=== PATIENT | female | born 1955 | race Caucasian/White ===

== ENCOUNTER → 2020-08-11 | Emergency (ER) | payer SELFPAY | LOC: DL.ED 13:50 | DX: Z53.21 Procedure and treatment not carried out due to patient leaving prior to being seen by health care provider (principal) ==

== ENCOUNTER 2020-08-23 16:35 | Inpatient (IN) | payer MEDICAID ==
[2020-08-23] MEDS ORDERED: Ondansetron 4 MG/2 ML SDV IVPUSH PRN (17:37)
[2020-08-23] MEDS ORDERED: Acetaminophen/oxyCODONE 325-5 MG Tab PO PRN (17:37)
[2020-08-23] MEDS ORDERED: Simvastatin 40 MG Tab PO SCH (17:45)
--- NOTE | 2020-08-23 18:05 | PCM.HP ---
H&P History of Present Illness - General Date of Service: 08/23/20 Admit Problem/Dx: Admission Diagnosis/Problem Admission Diagnosis/Problem Diverticulitis Source of Information: Patient, Old Records, Provider - History of Present Illness Initial Comments - Free Text/Narative: Patient is a 65 y.o female with medical history significant for HLP, PEÑA, Low back pain, s/p cholecystectomy, s/p appendectomy, and depression who was seen in clinic yesterday for 2 weeks of abdominal pain and was sent for imaging, which showed acute diverticulitis. Patient reports that she has been dealing with lower abdominal pain that started on the right and now involves the entire lower abdomen. States pain started 2 weeks ago, without trauma, and slowly worsened. Was about 10/10 yesterday and 9/10 this morning. Since improved to 2/10 at rest and 5/10 with movement. Reports nausea without emesis. States pain improved after she had BM today after CT. Reports chills but denies fevers, cp, sob, n/v/d/c, dysuria, or hematuria. - Related Data Allergies/Adverse Reactions: Allergies Allergy/AdvReac Type Severity Reaction Status Date / Time aspirin Allergy Stomach Verified 07/25/18 12:04 Upset codeine Allergy Stomach Verified 07/25/18 12:04 Upset Sulfa (Sulfonamide Allergy Stomach Verified 07/25/18 12:04 Antibiotics) Upset Home Medications: Home Meds Simvastatin [Zocor] 20 mg PO ASDIRECTED 07/25/18 [History] Past Medical History HEENT History: Reports: Impaired Vision Cardiovascular History: Reports: High Cholesterol Respiratory History: Reports: None Gastrointestinal History: Reports: Diverticulosis Genitourinary History: Reports: Urinary Incontinence LARD [employer]ER History: Reports: None Musculoskeletal History: Reports: None Neurological History: Reports: None Psychiatric History: Reports: Anxiety, Depression Endocrine/Metabolic History: Reports: Obesity/BMI 30+ Hematologic History: Reports: None Immunologic History: Reports: None Oncologic (Cancer) History: Reports: None Dermatologic History: Reports: None - Infectious Disease History Infectious Disease History: Reports: None - Past Surgical History GI Surgical History: Reports: Cholecystectomy, Colonoscopy Female Surgical History: Reports: Breast Reduction, D&C, Salpingo- Oophorectomy, Tubal Ligation, TURBT Neurological Surgical History: Reports: Other (See Below) (cyst removed from spine) Social & Family History - Family History Family Medical History: No Pertinent Family History Cardiac: Reports: CAD (Father with CABG), Heart Failure (mother) - Caffeine Use Caffeine Use: Reports: None - Living Situation & Occupation Living situation: Reports: H&P Review of Systems - Review of Systems: Review Of Systems: Comprehensive ROS is negative, except as noted in HPI. Exam - Exam Exam: See Below - Exam General: Alert, Oriented, Cooperative, Mild Distress HEENT: Conjunctiva Clear, EOMI, Hearing Intact, Mucosa Moist & [place] Neck: Supple, Trachea Midline Lungs: Clear to Auscultation, Normal Respiratory Effort Cardiovascular: Regular Rate, Regular Rhythm, Normal S1, Normal S2 GI/Abdominal Exam: Normal Bowel Sounds, Soft, Tender (without guarding or rebound. ) Extremities: Normal Inspection, Non-Tender, No Pedal Edema Peripheral Pulses: 2+: Radial (L), Dorsalis Pedis (L), Dorsalis Pedis (R) Skin: Warm, Dry, Intact Neuro Extensive - Mental Status: Alert, Oriented x3, Normal Mood/Affect, Normal Cognition, Memory Intact Psychiatric: Alert, Normal Affect, Normal Mood - Patient Data Lab Results Last 24 hrs: Laboratory Results - last 24 hr 08/23/20 Range/Units 17:06 SARS CoV-2 RNA Rapid DYLON Negative (NEGATIVE) - Problem List (1) Acute diverticulitis SNOMED Code(s): 341554847 ICD Code: K57.92 - DVTRCLI OF INTEST, PART UNSP, W/O PERF OR ABSCESS W/O BLEED Status: Acute Current Visit: Yes (2) Hyperlipidemia SNOMED Code(s): 25288897 ICD Code: E78.5 - HYPERLIPIDEMIA, UNSPECIFIED Status: Acute Current Visit: Yes (3) Obesity SNOMED Code(s): 481201018, 039162836 ICD Code: E66.9 - OBESITY, UNSPECIFIED Status: Acute Current Visit: Yes (4) PEÑA (obstructive sleep apnea) SNOMED Code(s): 00564193 ICD Code: G47.33 - OBSTRUCTIVE SLEEP APNEA (ADULT) (PEDIATRIC) Status: Acute Current Visit: Yes Problem List Initiated/Reviewed/Updated: Yes Orders Last 24hrs: Active Orders 24 hr Category Date Time Status Patient Status [ADT] Routine ADT 08/23/20 17:38 Active Intake and Output [RC] QSHIFT Care 08/23/20 17:39 Active Oxygen Therapy [RC] PRN Care 08/23/20 17:38 Active Up ad Guerita [RC] ASDIRECTED Care 08/23/20 17:37 Active VTE/DVT Education [RC] PER UNIT ROUTINE Care 08/23/20 17:38 Active Vital Signs [RC] Q4H Care 08/23/20 17:38 Active Clear Liquid Diet [DIET] Diet 08/23/20 Dinner Active CBC WITH AUTO DIFF [HEME] Routine Lab 08/23/20 17:37 Ordered COMPREHENSIVE METABOLIC PN,CMP [CHEM] Routine Lab 08/23/20 17:37 Ordered MAGNESIUM [CHEM] Routine Lab 08/23/20 17:37 Ordered PHOSPHORUS [CHEM] Routine Lab 08/23/20 17:37 Ordered Acetaminophen [TylenoL] Med 08/23/20 17:37 Active 650 mg PO Q4H PRN Acetaminophen/oxyCODONE [Percocet 325-5 MG] Med 08/23/20 17:37 Active 1 tab PO Q4H PRN Ciprofloxacin in D5W [Cipro in D5W 400 MG/200 ML] 400 Med 08/23/20 21:00 Pend ing mg Premix Bag 1 bag IV Q12HR Heparin Sodium Med 08/23/20 22:00 Active 5,000 units SUBCUT Q8HR Ondansetron [Zofran ODT] Med 08/23/20 17:37 Active 4 mg PO Q6H PRN Ondansetron [Zofran] Med 08/23/20 17:37 Active 4 mg IVPUSH Q6H PRN Simvastatin [Zocor] Med 08/23/20 17:45 Pending 20 mg PO ASDIRECTED Sodium Chloride 0.9% [Normal Saline] 1,000 ml Med 08/23/20 17:45 Active IV ASDIRECTED metroNIDAZOLE/Normal Saline [Flagyl 500 MG in NS 100 ML Med 08/23/20 17:45 Active ] 500 mg Premix Bag 100 bag IV Q8H Resuscitation Status Routine Resus Stat 08/23/20 17:37 Ordered Medication Orders Acetaminophen (Tylenol) 650 mg PO Q4H PRN PRN Reason: Pain Heparin Sodium (Porcine) (Heparin Sodium) 5,000 units SUBCUT Q8HR [facility] Sodium Chloride (Normal Saline) 1,000 mls @ 125 mls/hr IV ASDIRECTED [facility] Ciprofloxacin/Dextrose 400 mg/ (Premix) 200 mls @ 200 mls/hr IV Q12HR [facility] Metronidazole 500 mg/ Premix 100 mls @ 100 mls/hr IV Q8H [facility] Ondansetron HCl (Zofran Odt) 4 mg PO Q6H PRN PRN Reason: nausea, able to take PO Ondansetron HCl (Zofran) 4 mg IVPUSH Q6H PRN PRN Reason: Nausea/Vomiting Oxycodone/Acetaminophen (Percocet 325-5 Mg) 1 tab PO Q4H PRN PRN Reason: Pain (moderate 4-6) Simvastatin (Zocor) 20 mg PO ASDIRECTED [facility] Assessment/Plan Comment:: #Acute diverticulitis: Reports abdominal pain and confirmed on CT -Cipro and flagyl -IVF -Clear liquid diet #HLP: -Zocor #PEÑA: -Offer her CPAP at bedtime. #Tobacco use disorder: Trying to quit. - Counseling provided. #Alcohol abuse: -Last drink over a week ago. -Counseling provided. DVT PPx: Heparin GI PPx: CLD. Code status: Full code per patient preference.
[2020-08-23] MEDS: Sodium Chloride 0.9% 1,000 ML IV SCH (18:44)
[2020-08-23 18:47] LABS: ANION GAP 12.4 mEq/L (7-13); CHLORIDE,CL 100 mmol/L (98-107); SODIUM,NA 135 mmol/L (136-145)
[2020-08-23] MEDS: metroNIDAZOLE/Normal Saline 500 MG in Premix Bag 100 BAG IV SCH (18:47)
[2020-08-23] MEDS: Acetaminophen 325 MG Tab PO PRN (20:12)
[2020-08-23] MEDS: Ondansetron 4 MG Tab.DIS PO PRN (20:12)
[2020-08-23] MEDS: Ciprofloxacin in D5W 400 MG in Premix Bag 1 BAG IV SCH ×2 (20:13)
[2020-08-23] MEDS ORDERED: diphenhydrAMINE 25 MG Tab PO ONE (21:53)
[2020-08-24] MEDS: Heparin Sodium 5,000 Units/ML Vial SUBCUT SCH ×4 (00:18→21:57)
[2020-08-24] MEDS: metroNIDAZOLE/Normal Saline 500 MG in Premix Bag 100 BAG IV SCH ×2 (03:16→10:20)
[2020-08-24] MEDS: Acetaminophen 325 MG Tab PO PRN ×2 (03:17→12:12)
[2020-08-24] MEDS: Sodium Chloride 0.9% 1,000 ML IV SCH (03:18)
[2020-08-24] MEDS: Ciprofloxacin in D5W 400 MG in Premix Bag 1 BAG IV SCH ×2 (10:20)
[2020-08-24] MEDS ORDERED: Sodium Chloride 0.9% 10 ML Syringe FLUSH PRN (11:03)
[2020-08-24] MEDS: Ondansetron 4 MG Tab.DIS PO PRN (11:24)
--- NOTE | 2020-08-24 11:42 | PCM.PN ---
- General Info Date of Service: 08/24/20 Admission Dx/Problem (Free Text): Admission Diagnosis/Problem Admission Diagnosis/Problem Diverticulitis Subjective Update: No acute events overnight. Reports a rash on the chest and face slightly improved. Had rash on the neck but that is also improved. Tolerated clear liquid diet. States that her abdominal pain worsens with movement but otherwise remained stable. Denies fevers, chills, nausea, vomiting, diarrhea, constipation, dysuria, hematuria, edema, or any other symptoms. Functional Status: Reports: Pain Controlled - Patient Data Vitals - Most Recent: Last Vital Signs Temp 98.3 F 08/24/20 07:59 Pulse 74 08/24/20 07:59 Resp 20 08/24/20 07:59 BP 114/52 L 08/24/20 07:59 Pulse Ox 98 08/24/20 07:59 Weight - Most Recent: 230 lb I&O - Last 24 Hours: Intake & Output 08/23/20 08/24/20 08/24/20 22:59 06:59 14:59 Intake Total 300 1289 834 Output Total 1000 Balance 300 289 834 Lab Results Last 24 Hours: Laboratory Results - last 24 hr 08/23/20 08/23/20 08/23/20 Range/Units 17:06 18:20 18:20 WBC 9.7 (5.0-10.0) 10^3/uL RBC 3.86 L (4.2-5.4) 10^6/uL Hgb 12.8 (12.0-16.0) g/dL Hct 37.7 (37.0-47.0) % MCV 97.7 D (80-100) fL MCH 33.2 (27.0-34.0) pg MCHC 34.0 (33.0-35.0) g/dL Plt Count 244 (150-450) 10^3/uL Lymph % (Auto) 3.6 L (20.5-50.1) % [place] % (Auto) 6.8 (2-8) % Eos % (Auto) 1.7 (1.0-3.0) % Neutrophils % (Manual) 82 H (42-75) % Band Neutrophils % 4 % Lymphocytes % (Manual) 7 L (20-50) % Monocytes % (Manual) 6 (2-8) % Eosinophils % (Manual) 1 (1-3) % Sodium 135 L (136-145) mmol/L Potassium 3.4 L (3.5-5.1) mmol/L Chloride 100 (98-107) mmol/L Carbon Dioxide 26 (21-32) mmol/L Anion Gap 12.4 (7-13) mEq/L BUN 8 (7-18) mg/dL Creatinine 0.99 (0.55-1.02) mg/dL Est Cr Clr Drug Dosing TNP Estimated GFR (MDRD) 56 BUN/Creatinine Ratio 8.1 (No establ ref range) Glucose 122 H (74-99) mg/dL Calcium 8.4 L (8.5-10.1) mg/dL Phosphorus 2.8 (2.6-4.7) mg/dL Magnesium 1.9 (1.8-2.4) mg/dL Total Bilirubin 0.5 (0.2-1.0) mg/dL AST 14 L (15-37) U/L ALT 21 (14-59) U/L Alkaline Phosphatase 56 (46-116) U/L Total Protein 6.8 (6.4-8.2) g/dL Albumin 3.4 (3.4-5.0) g/dL Globulin 3.4 Albumin/Globulin Ratio 1.0 SARS CoV-2 RNA Rapid DYLON Negative (NEGATIVE) Med Orders - Current: Current Medications Acetaminophen (Tylenol) 650 mg PO Q4H PRN PRN Reason: Pain Last Admin: 08/24/20 03:17 Dose: 650 mg Documented by: Amoxicillin/Clavulanate Potassium (Augmentin 875 Mg/125 Mg) 1 tab PO Q12HR [facility] Heparin Sodium (Porcine) (Heparin Sodium) 5,000 units SUBCUT Q8HR [facility] Last Admin: 08/24/20 06:00 Dose: Not Given Documented by: Metronidazole (Metronidazole) 250 mg PO Q8H [facility] Ondansetron HCl (Zofran Odt) 4 mg PO Q6H PRN PRN Reason: nausea, able to take PO Last Admin: 08/24/20 11:24 Dose: 4 mg Documented by: Ondansetron HCl (Zofran) 4 mg IVPUSH Q6H PRN PRN Reason: Nausea/Vomiting Oxycodone/Acetaminophen (Percocet 325-5 Mg) 1 tab PO Q4H PRN PRN Reason: Pain (moderate 4-6) Simvastatin (Zocor) 20 mg PO ASDIRECTED [facility] Sodium Chloride (Saline Flush) 10 ml FLUSH ASDIRECTED PRN PRN Reason: Keep Vein Open Discontinued Medications Diphenhydramine HCl (Benadryl) 25 mg PO ONETIME ONE Stop: 08/23/20 21:54 Last Admin: 08/23/20 22:23 Dose: 25 mg Documented by: Sodium Chloride (Normal Saline) 1,000 mls @ 125 mls/hr IV ASDIRECTED [facility] Last Admin: 08/24/20 03:18 Dose: 125 mls/hr Documented by: Ciprofloxacin/Dextrose 400 mg/ (Premix) 200 mls @ 200 mls/hr IV Q12HR [facility] Last Admin: 08/24/20 10:20 Dose: Not Given Documented by: Metronidazole 500 mg/ Premix 100 mls @ 100 mls/hr IV Q8H [facility] Last Admin: 08/24/20 10:20 Dose: Not Given Documented by: - Exam General: Alert, Oriented, Cooperative, No Acute Distress HEENT: Pupils Equal, Pupils Reactive, Mucous Membr. Moist/[place] Neck: Supple, Trachea Midline Lungs: Clear to Auscultation, Normal Respiratory Effort Cardiovascular: Regular Rate, Regular Rhythm, No Murmurs GI/Abdominal Exam: Normal Bowel Sounds, Soft, Tender (Mild tenderness of bilateral lower abdomen, worse on the left. ) Extremities: Normal Inspection, Non-Tender, No Pedal Edema, Normal Capillary Refill Skin: Warm, Dry, Intact Neurological: No New Focal Deficit Psy/Mental Status: Alert, Normal Affect, Normal Mood Sepsis Event Note - Evaluation Sepsis Screening Result: No Definite Risk - Focused Exam Vital Signs: Vital Signs Temp Pulse Resp BP BP Pulse Ox 08/24/20 07:59 98.3 F 74 20 114/52 L 98 08/24/20 03:24 102.6 F H 86 14 145/51 H 94 L 08/24/20 00:00 98.7 F 72 18 120/43 L 95 - Problem List & Annotations (1) Acute diverticulitis SNOMED Code(s): 063810015 Code(s): K57.92 - DVTRCLI OF INTEST, PART UNSP, W/O PERF OR ABSCESS W/O BLEED Status: Acute Current Visit: Yes (2) Hyperlipidemia SNOMED Code(s): 60902134 Code(s): E78.5 - HYPERLIPIDEMIA, UNSPECIFIED Status: Acute Current Visit: Yes (3) Obesity SNOMED Code(s): 893924472, 493292192 Code(s): E66.9 - OBESITY, UNSPECIFIED Status: Acute Current Visit: Yes (4) PEÑA (obstructive sleep apnea) SNOMED Code(s): 24168560 Code(s): G47.33 - OBSTRUCTIVE SLEEP APNEA (ADULT) (PEDIATRIC) Status: Acute Current Visit: Yes - Problem List Review Problem List Initiated/Reviewed/Updated: Yes - My Orders Last 24 Hours: My Active Orders 08/23/20 17:37 Up ad Guerita [RC] ASDIRECTED Acetaminophen [TylenoL] 650 mg PO Q4H PRN Acetaminophen/oxyCODONE [Percocet 325-5 MG] 1 tab PO Q4H PRN Ondansetron [Zofran ODT] 4 mg PO Q6H PRN Ondansetron [Zofran] 4 mg IVPUSH Q6H PRN Resuscitation Status Routine 08/23/20 17:38 Patient Status [ADT] Routine Oxygen Therapy [RC] PRN VTE/DVT Education [RC] PER UNIT ROUTINE Vital Signs [RC] Q4H 08/23/20 17:39 Intake and Output [RC] QSHIFT 08/23/20 17:45 Simvastatin [Zocor] 20 mg PO ASDIRECTED 08/23/20 22:00 Heparin Sodium 5,000 units SUBCUT Q8HR 08/24/20 11:00 metroNIDAZOLE 250 mg PO Q8H 08/24/20 11:03 Sodium Chloride 0.9% [Saline Flush] 10 ml FLUSH ASDIRECTED PRN Convert IV to Saline Lock [OM.PC] Routine 08/24/20 Lunch Full Liquid Diet [DIET] 08/24/20 21:00 Amoxicillin/Clavulanate K [Augmentin 875 MG/125 MG] 1 tab PO Q12HR 08/25/20 05:11 BASIC METABOLIC PANEL,BMP [CHEM] AM CBC W/O DIFF,HEMOGRAM [HEME] AM MAGNESIUM [CHEM] AM PHOSPHORUS [CHEM] AM - Plan Plan:: #Acute diverticulitis: Reports abdominal pain and confirmed on CT -Discontinue cipro -Start augmenting and oral flagyl -D/c IVF -Full liquid diet #HLP: -Zocor #Drug rash: -Discontinue Cipro #PEÑA: -Offer her CPAP at bedtime. #Tobacco use disorder: Trying to quit. - Counseling provided. #Alcohol abuse: -Last drink over a week ago. -Counseling provided. DVT PPx: Heparin GI PPx: CLD. Code status: Full code per patient preference.
[2020-08-24] MEDS: metroNIDAZOLE 250 MG Tab PO SCH ×2 (12:12→19:15)
[2020-08-24] MEDS: Amoxicillin/Clavulanate K 875-125 MG Tab PO SCH (21:57)
[2020-08-25] MEDS: metroNIDAZOLE 250 MG Tab PO SCH (03:39)
[2020-08-25] MEDS: Heparin Sodium 5,000 Units/ML Vial SUBCUT SCH ×2 (05:44→13:43)
[2020-08-25 06:59] LABS: ANION GAP 11.9 mEq/L (7-13)
[2020-08-25] MEDS: Amoxicillin/Clavulanate K 875-125 MG Tab PO SCH (08:50)
[2020-08-25] MEDS ORDERED: Phosphorus #1 250 MG Tab PO ONE (09:14)
[2020-08-25] MEDS: Potassium Chloride 10 MEQ Tab.ER PO SCH ×2 (09:36→13:44)
[2020-08-25] MEDS ORDERED: metroNIDAZOLE 250 MG Tab PO SCH (14:00)
--- NOTE | 2020-08-25 15:56 | PCM.DCSUM1 ---
Discharge Summary - Hospital Course Free Text/Narrative:: Patient is a 65 y.o female with medical history significant for HLP, PEÑA, Low back pain, s/p cholecystectomy, s/p appendectomy, and depression who was seen in clinic yesterday for 2 weeks of abdominal pain and was sent for imaging, which showed acute diverticulitis. She was sent home on oral antibiotics but pain persisted was was referred for admission for IV antibiotics. Patient developed rash with ciprofloxacin as outpatient. Cipro was discontinued and she was started on Augmentin and flagyl. Patient's abdominal pain improved. She was started on clear liquid diet and diet was advanced slowly. She improved clinically and tolerated general consistency diet. Potassium was down to 2.9 this morning. Improved to 3.7 with oral replacement. She is being discharged home to continue antibiotics with augmentin and flagyl. She is to follow up with PCP. HPI Initial Comments: Patient is a 65 y.o female with medical history significant for HLP, PEÑA, Low back pain, s/p cholecystectomy, s/p appendectomy, and depression who was seen in clinic yesterday for 2 weeks of abdominal pain and was sent for imaging, which showed acute diverticulitis. Patient reports that she has been dealing with lower abdominal pain that started on the right and now involves the entire lower abdomen. States pain started 2 weeks ago, without trauma, and slowly worsened. Was about 10/10 yesterday and 9/10 this morning. Since improved to 2/10 at rest and 5/10 with movement. Reports nausea without emesis. States pain improved after she had BM today after CT. Reports chills but denies fevers, cp, sob, n/v/d/c, dysuria, or hematuria. Diagnosis: Stroke: No - Discharge Data Discharge Date: 08/25/20 Discharge Disposition: Home, Self-Care 01 Condition: Good - Referral to Home Health Primary Care Physician: Crystal Yoder MD - Discharge Diagnosis/Problem(s) (1) Acute diverticulitis SNOMED Code(s): 453222542 ICD Code: K57.92 - DVTRCLI OF INTEST, PART UNSP, W/O PERF OR ABSCESS W/O BLEED Status: Acute Current Visit: Yes (2) Hyperlipidemia SNOMED Code(s): 13151212 ICD Code: E78.5 - HYPERLIPIDEMIA, UNSPECIFIED Status: Acute Current Visit: Yes (3) Obesity SNOMED Code(s): 442155610, 480393896 ICD Code: E66.9 - OBESITY, UNSPECIFIED Status: Acute Current Visit: Yes (4) PEÑA (obstructive sleep apnea) SNOMED Code(s): 51895458 ICD Code: G47.33 - OBSTRUCTIVE SLEEP APNEA (ADULT) (PEDIATRIC) Status: Acute Current Visit: Yes - Discharge Plan *PRESCRIPTION DRUG MONITORING PROGRAM REVIEWED*: No *COPY OF PRESCRIPTION DRUG MONITORING REPORT IN PATIENT MERLE: No Prescriptions/Med Rec: Amoxicillin/Clavulanate K [Augmentin 875-125 MG] 1 tab PO Q12HR #9 tablet metroNIDAZOLE 500 mg PO Q8H #28 tablet Home Medications: Home Meds Simvastatin [Zocor] 20 mg PO BEDTIME 07/25/18 [History] Amoxicillin/Clavulanate K [Augmentin 875-125 MG] 1 tab PO Q12HR #9 tablet 08/25/20 [Rx] metroNIDAZOLE 500 mg PO Q8H #28 tablet 08/25/20 [Rx] Patient Handouts: Diverticulitis, [id number], Low-Fiber Eating Plan - Discharge Summary/Plan Comment DC Time >30 min.: Yes - General Info Date of Service: 08/25/20 Admission Dx/Problem (Free Text: Admission Diagnosis/Problem Admission Diagnosis/Problem Diverticulitis Subjective Update: Potassium down to 2.9 this morning. Reports a rash on the chest and face is improved. Tolerated full liquid diet. Abdominal pain is improved. Only has abdominal pain with bowel movements. Denies fevers, chills, nausea, vomiting, diarrhea, constipation, dysuria, hematuria, edema, or any other symptoms. - Patient Data Vitals - Most Recent: Last Vital Signs Temp 97.6 F 08/25/20 12:23 Pulse 76 08/25/20 12:23 Resp 20 08/25/20 12:23 BP 118/51 L 08/25/20 12:23 Pulse Ox 98 08/25/20 12:23 Weight - Most Recent: 230 lb I&O - Last 24 hours: Intake & Output 08/25/20 08/25/20 08/25/20 06:59 14:59 22:59 Intake Total 150 120 Output Total 500 Balance -350 120 Lab Results - Last 24 hrs: Laboratory Results - last 24 hr 08/25/20 08/25/20 08/25/20 Range/Units 06:05 06:05 14:51 WBC 8.8 (5.0-10.0) 10^3/uL RBC 3.29 L (4.2-5.4) 10^6/uL Hgb 11.0 L D (12.0-16.0) g/dL Hct 32.2 L (37.0-47.0) % MCV 97.9 (80-100) fL MCH 33.4 (27.0-34.0) pg MCHC 34.2 (33.0-35.0) g/dL Plt Count 182 (150-450) 10^3/uL Sodium 136 (136-145) mmol/L Potassium 2.9 L 3.7 (3.5-5.1) mmol/L Chloride 101 (98-107) mmol/L Carbon Dioxide 26 (21-32) mmol/L Anion Gap 11.9 (7-13) mEq/L BUN 6 L (7-18) mg/dL Creatinine 0.97 (0.55-1.02) mg/dL Est Cr Clr Drug Dosing 52.72 mL/min Estimated GFR (MDRD) 58 Glucose 128 H (74-99) mg/dL Calcium 7.8 L (8.5-10.1) mg/dL Phosphorus 2.3 L (2.6-4.7) mg/dL Magnesium 1.8 (1.8-2.4) mg/dL Med Orders - Current: Current Medications Acetaminophen (Tylenol) 650 mg PO Q4H PRN PRN Reason: Pain Last Admin: 08/24/20 12:12 Dose: 650 mg Documented by: Amoxicillin/Clavulanate Potassium (Augmentin 875 Mg/125 Mg) 1 tab PO Q12HR [facility] Last Admin: 08/25/20 08:50 Dose: 1 tab Documented by: Heparin Sodium (Porcine) (Heparin Sodium) 5,000 units SUBCUT Q8HR [facility] Last Admin: 08/25/20 13:43 Dose: 5,000 units Documented by: Metronidazole (Metronidazole) 250 mg PO Q8H [facility] Last Admin: 08/25/20 13:44 Dose: 250 mg Documented by: Ondansetron HCl (Zofran Odt) 4 mg PO Q6H PRN PRN Reason: nausea, able to take PO Last Admin: 08/24/20 11:24 Dose: 4 mg Documented by: Ondansetron HCl (Zofran) 4 mg IVPUSH Q6H PRN PRN Reason: Nausea/Vomiting Oxycodone/Acetaminophen (Percocet 325-5 Mg) 1 tab PO Q4H PRN PRN Reason: Pain (moderate 4-6) Potassium Chloride (Klor-Con 10) 40 meq PO Q4H [facility] Stop: 08/25/20 18:01 Last Admin: 08/25/20 13:44 Dose: 40 meq Documented by: Simvastatin (Zocor) 20 mg PO ASDIRECTED [facility] Sodium Chloride (Saline Flush) 10 ml FLUSH ASDIRECTED PRN PRN Reason: Keep Vein Open Last Admin: 08/25/20 08:51 Dose: 10 ml Documented by: Discontinued Medications Diphenhydramine HCl (Benadryl) 25 mg PO ONETIME ONE Stop: 08/23/20 21:54 Last Admin: 08/23/20 22:23 Dose: 25 mg Documented by: Sodium Chloride (Normal Saline) 1,000 mls @ 125 mls/hr IV ASDIRECTED [facility] Last Admin: 08/24/20 03:18 Dose: 125 mls/hr Documented by: Ciprofloxacin/Dextrose 400 mg/ (Premix) 200 mls @ 200 mls/hr IV Q12HR [facility] Last Admin: 08/24/20 10:20 Dose: Not Given Documented by: Metronidazole 500 mg/ Premix 100 mls @ 100 mls/hr IV Q8H [facility] Last Admin: 08/24/20 10:20 Dose: Not Given Documented by: Metronidazole (Metronidazole) 250 mg PO Q8H [facility] Last Admin: 08/25/20 03:39 Dose: 250 mg Documented by: Sodium Phosphate (Neutra-Phos) 500 mg PO ONETIME ONE Stop: 08/25/20 09:15 Last Admin: 08/25/20 09:35 Dose: 500 mg Documented by: - Exam General: Reports: Alert, Oriented, Cooperative, No Acute Distress HEENT: Reports: Pupils Equal, Pupils Reactive, Mucous Membr. Moist/[place] Neck: Reports: Supple Lungs: Reports: Clear to Auscultation, Normal Respiratory Effort Cardiovascular: Reports: Regular Rate, Regular Rhythm GI/Abdominal Exam: Normal Bowel Sounds, Soft, Non-Tender, No Distention Extremities: Normal Inspection, Non-Tender, No Pedal Edema Skin: Reports: Warm, Dry, Intact Neurological: Reports: No New Focal Deficit Psy/Mental Status: Reports: Alert, Normal Affect, Normal Mood
[2020-08-25] MEDS ORDERED: Amoxicillin/Clavulanate K 875-125 MG Tab ONE (16:04)
[2020-08-25] MEDS ORDERED: metroNIDAZOLE 250 MG Tab ONE (16:04)
[2020-08-25] MEDS ORDERED: Amoxicillin/Clavulanate K 875-125 MG Tab PO ONE (16:49)
[2020-08-25] MEDS ORDERED: metroNIDAZOLE 250 MG Tab PO ONE (16:49)
== END 2020-08-25 16:50 | disposition home or self-care (01) | DRG 392 ==
LOC: DL.MS 17:38
PROVIDERS: ADMIT Internal Medicine; ATTEND Internal Medicine
DX: K57.92 Diverticulitis of intestine, part unspecified, without perforation or abscess without bleeding (principal); E78.5 Hyperlipidemia, unspecified; G47.33 Obstructive sleep apnea (adult) (pediatric); M54.5 Low back pain; F32.9 Major depressive disorder, single episode, unspecified; H54.7 Unspecified visual loss; E78.00 Pure hypercholesterolemia, unspecified; R32 Unspecified urinary incontinence; R21 Rash and other nonspecific skin eruption; E66.9 Obesity, unspecified; F41.9 Anxiety disorder, unspecified; Z20.828 Contact with and (suspected) exposure to other viral communicable diseases; Z68.38 Body mass index [BMI] 38.0-38.9, adult; Z98.51 Tubal ligation status; Z88.6 Allergy status to analgesic agent; Z90.49 Acquired absence of other specified parts of digestive tract; Z88.5 Allergy status to narcotic agent; Z88.2 Allergy status to sulfonamides
CPT/HCPCS: 36415; 80048; 80053; 83735; 84100; 84132; 85025; 85027; 87040; 99222; 99232; 99239; A9270-GY; J0744; J1644; J3490; J7030; U0002

== ENCOUNTER 2020-09-18 06:57 | Day surgery (SDC) | payer MEDICAID ==
[2020-09-18] MEDS ORDERED: Propofol 200 MG/20 ML SDV IV ONE (06:58)
[2020-09-18] MEDS ORDERED: Dextrose 5%-0.45% NaCl 1,000 ML IV SCH (07:30)
--- NOTE | 2020-09-18 10:17 | OR ---
DATE: 09/18/2020 PROCEDURES: Total colonoscopy NBI and cold snare polypectomy. INSTRUMENT USED: [id number]-[id number] Olympus videocolonoscope. PREMEDICATIONS: Provided by the Anesthesiology Services. INDICATION: The patient with recent subacute colonic diverticulitis, treated. An abnormal CT of the colon was reported. Colonoscopic examination is done for detection of any polypoid lesions and removal and endoscopic hemostasis therapy if needed. DESCRIPTION OF PROCEDURE: Initial rectal exam was unremarkable. Rigid anoscopy was normal. The colonoscope was passed with ease. Numerous scattered diverticula were noted in the distal left colon along with deformity. The scope was passed with ease up to the ileocecal area. Photographs were taken of the normal-appearing cecum identified by landmarks of appendiceal orifice and double- bulged ileocecal folds. No bleeding was noted from any of the visualized areas at the commencement of the examination. The bowel preparation was found to be adequate, [place] scale 2 in all the regions, total score 6. No stricture. No vascular ectasia. No large isolated ulcerations were seen. No evidence of diffuse inflammatory bowel disease in the form of friability, contact bleeding, or ulcerations. In the mid ascending colon, a 3 mm sized benign-appearing polyp was noted. NBI views were obtained. Cold snare polypectomy was done. The tissue was retrieved and sent for histopathology. Probing the proximal sides of folds and flexures using adequate distention and clearing up the stool material, withdrawal of the scope was made, [id number] time over 6 minutes. No bleeding was noted from any of the visualized areas at the completion of the examination. IMPRESSION: 1. Diverticulosis. 2. Diminutive ascending colon polyp. The patient tolerated the procedure well. [facility] /[id number] [place]
--- NOTE | 2020-09-18 11:47 | OR ---
DATE: 09/18/2020 PROCEDURES: Total colonoscopy, narrow-band imaging, and cold snare polypectomy. INSTRUMENT USED: PCF-H190DL Olympus video colonoscope. PREMEDICATIONS: Provided by Anesthesiology Services. INDICATION: The patient with recent subacute colonic diverticulitis, treated. Colonoscopic examination is done for detection of any polypoid lesions and removal, endoscopic hemostasis therapy if needed. DESCRIPTION OF PROCEDURE: Initial rectal exam was unremarkable. Rigid anoscopy was normal. The colonoscope was passed with ease. Numerous scattered diverticula were noted in the distal left colon along with deformity. The scope was passed with ease up to the ileocecal area. Photographs were taken of the normal-appearing cecum, identified by landmarks of appendiceal orifice and double-bulged ileocecal folds. No bleeding was noted from any of the visualized areas at the commencement of the examination. The bowel preparation was found to be adequate, [place] scale 2 in all the regions, total score 6. No stricture. No vascular ectasia. No large isolated ulcerations seen. No evidence of diffuse inflammatory bowel disease in the form of friability, contact bleeding, or ulcerations. In the mid ascending colon, diminutive benign-appearing polyp was noted, NBI views were obtained, photograph was taken, cold snare polypectomy was done, the tissue was retrieved and sent for histopathology. Probing the proximal sides of folds and flexures using adequate distention and clearing up the stool material, withdrawal of the scope was made, cecum to rectum time over 6 minutes. No bleeding was noted from any of the visualized areas at the completion of examination. IMPRESSION: 1. Diverticulosis. 2. Diminutive ascending colon polyp. The patient tolerated the procedure well. [facility] /[id number]
== END 2020-09-18 10:27 | disposition home or self-care (01) ==
LOC: DL.ENDO 06:57
PROVIDERS: ATTEND Internal Medicine Gastroenterology
DX: K63.5 Polyp of colon (principal); K57.30 Diverticulosis of large intestine without perforation or abscess without bleeding; E66.09 Other obesity due to excess calories; G47.33 Obstructive sleep apnea (adult) (pediatric); E78.5 Hyperlipidemia, unspecified; F41.1 Generalized anxiety disorder; F32.9 Major depressive disorder, single episode, unspecified; Z79.899 Other long term (current) drug therapy; Z98.890 Other specified postprocedural states; Z68.38 Body mass index [BMI] 38.0-38.9, adult
CPT/HCPCS: 00902; 45385; J2704; J7042

== ENCOUNTER 2022-05-11 14:16 | Inpatient (IN) | payer MEDICARE, OTHER ==
[2022-05-11] MEDS ORDERED: Sodium Chloride 0.9% 10 ML Syringe FLUSH PRN (15:13)
[2022-05-11 15:57] LABS: ANION GAP 15.5 mEq/L (7-13)
[2022-05-11] MEDS ORDERED: HYDROmorphone 0.5 MG/0.5 ML Syringe IVPUSH PRN (20:09)
[2022-05-11] MEDS ORDERED: Acetaminophen/HYDROcodone 325-5 MG Tab PO PRN (20:09)
[2022-05-11] MEDS ORDERED: Ondansetron 4 MG/2 ML SDV IVPUSH PRN (20:09)
[2022-05-11] MEDS ORDERED: Magnesium Hydroxide 400 MG/5 ML Susp 30 ML Cup PO PRN (20:09)
[2022-05-11] MEDS ORDERED: Albuterol/Ipratropium 3.0-0.5 MG/3 ML Neb Soln NEB PRN (20:09)
[2022-05-11] MEDS ORDERED: Zolpidem 5 MG Tab PO PRN (20:09)
[2022-05-11] MEDS ORDERED: Acetaminophen 325 MG Tab PO PRN (20:09)
[2022-05-11] MEDS ORDERED: Polyethylene Glycol 3350 Powder 17 GM Packet PO PRN (20:09)
[2022-05-11] MEDS ORDERED: Albuterol/Ipratropium 3.0-0.5 MG/3 ML Neb Soln INH PRN (21:21)
[2022-05-12] MEDS ORDERED: Sodium Chloride 0.9% 500 ML IV SCH
[2022-05-12 07:45] LABS: ANION GAP 13.7 mEq/L (7-13)
[2022-05-12] MEDS ORDERED: Cyanocobalamin (Vitamin B12) 1,000 MCG Tab PO SCH (09:00)
[2022-05-12] MEDS ORDERED: Simvastatin 10 MG Tab PO SCH (09:00)
[2022-05-12] MEDS ORDERED: Cholecalciferol (Vitamin D3) 25 MCG Tab PO SCH (09:00)
[2022-05-12] MEDS ORDERED: HYDROCORTISONE PE APP TOP SCH (09:00)
[2022-05-12] MEDS ORDERED: Calcium Carbonate/Vitamin D3 1250 MG-5 MCG Tab PO SCH (09:00)
== END 2022-05-12 19:50 | disposition home or self-care (01) | DRG 810 ==
LOC: DL.ED 14:16 → DL.MS 17:39
PROVIDERS: ADMIT Internal Medicine; ATTEND Internal Medicine
PROC: 30233N1 Transfusion of Nonautologous Red Blood Cells into Peripheral Vein, Percutaneous Approach (ICD-10-PCS; principal; 2022-05-11)
DX: D64.9 Anemia, unspecified (principal); D61.9 Aplastic anemia, unspecified; D46.9 Myelodysplastic syndrome, unspecified; K64.4 Residual hemorrhoidal skin tags; R73.9 Hyperglycemia, unspecified; E66.9 Obesity, unspecified; Z68.39 Body mass index [BMI] 39.0-39.9, adult; G47.33 Obstructive sleep apnea (adult) (pediatric); E78.5 Hyperlipidemia, unspecified; M19.90 Unspecified osteoarthritis, unspecified site; M54.9 Dorsalgia, unspecified; Z20.822 Contact with and (suspected) exposure to COVID-19; G89.29 Other chronic pain; F41.9 Anxiety disorder, unspecified; E78.00 Pure hypercholesterolemia, unspecified; G47.30 Sleep apnea, unspecified; F32.A Depression, unspecified; H54.7 Unspecified visual loss; Z28.82 Immunization not carried out because of caregiver refusal; Z88.0 Allergy status to penicillin; Z88.5 Allergy status to narcotic agent; Z88.2 Allergy status to sulfonamides; Z79.82 Long term (current) use of aspirin; Z90.49 Acquired absence of other specified parts of digestive tract; Z90.710 Acquired absence of both cervix and uterus; Z88.1 Allergy status to other antibiotic agents; Z88.8 Allergy status to other drugs, medicaments and biological substances; Z79.899 Other long term (current) drug therapy
CPT/HCPCS: 36415; 36430; 80053; 81001; 82248; 82272; 82607; 82746; 83010; 83540; 83550; 83615; 83735; 84439; 84443; 85008; 85014; 85018; 85025; 85027; 85045; 86140; 86747; 86850; 86900; 86901; 86920; 86922; 93005; 93010; 99284; 99285; A9270-GY; J7040; P9016; U0002

== ENCOUNTER 2022-05-14 18:51 | Emergency (ER) | payer MEDICARE, OTHER ==
[2022-05-14 19:51] LABS: ANION GAP 16.9 mEq/L (7-13)
== END 2022-05-14 21:15 | disposition home or self-care (01) ==
LOC: DL.ED 18:51
DX: D64.9 Anemia, unspecified (principal); R53.82 Chronic fatigue, unspecified; E66.9 Obesity, unspecified; Z68.39 Body mass index [BMI] 39.0-39.9, adult; Z88.1 Allergy status to other antibiotic agents; Z88.2 Allergy status to sulfonamides; Z88.6 Allergy status to analgesic agent; Z88.5 Allergy status to narcotic agent; Z88.8 Allergy status to other drugs, medicaments and biological substances; Z79.899 Other long term (current) drug therapy; Z79.82 Long term (current) use of aspirin; Z90.49 Acquired absence of other specified parts of digestive tract; Z90.710 Acquired absence of both cervix and uterus; Z20.822 Contact with and (suspected) exposure to COVID-19
CPT/HCPCS: 36415; 71046; 80053; 83605; 84484; 85025; 85379; 87040; 93005; 99285; U0002; 93010; 99284

== ENCOUNTER 2022-05-30 14:55 | Emergency (ER) | payer MEDICARE, OTHER ==
[2022-05-30] MEDS ORDERED: Ciprofloxacin 500 MG Tab PO ONE (14:56)
[2022-05-30] MEDS ORDERED: Fluconazole 100 MG Tab PO ONE (14:56)
[2022-05-30] MEDS ORDERED: Clindamycin HCl 150 MG Cap PO ONE (14:56)
[2022-05-30] MEDS ORDERED: Sodium Chloride 0.9% 10 ML Syringe FLUSH PRN (15:11)
[2022-05-30 15:53] LABS: ANION GAP 15.6 mEq/L (7-13); CHLORIDE,CL 101 mmol/L (98-107); SODIUM,NA 137 mmol/L (136-145)
[2022-05-30 16:12] LABS: CORONAVIRUS COVID-19 NAA NEGATIVE (NEGATIVE)
[2022-05-30 16:16] LABS: ESTIMATED GFR 73 mL/min (>=60)
[2022-05-30] MEDS ORDERED: Fluconazole 100 MG Tab ONE (17:01)
[2022-05-30] MEDS ORDERED: Ciprofloxacin 500 MG Tab ONE (17:02)
[2022-05-30] MEDS ORDERED: Clindamycin HCl 150 MG Cap ONE (17:03)
== END 2022-05-30 17:30 | disposition home or self-care (01) ==
LOC: DL.ED 14:55
DX: K57.92 Diverticulitis of intestine, part unspecified, without perforation or abscess without bleeding (principal); E78.00 Pure hypercholesterolemia, unspecified; E66.9 Obesity, unspecified; Z68.37 Body mass index [BMI] 37.0-37.9, adult; Z88.0 Allergy status to penicillin; Z88.6 Allergy status to analgesic agent; Z88.5 Allergy status to narcotic agent; Z88.8 Allergy status to other drugs, medicaments and biological substances; Z88.2 Allergy status to sulfonamides; Z90.49 Acquired absence of other specified parts of digestive tract; Z20.822 Contact with and (suspected) exposure to COVID-19
CPT/HCPCS: 0240U; 36415; 80053; 81001; 82150; 83605; 83690; 84145; 85025; 86140; 87040; 99284; A9270-GY

== ENCOUNTER 2024-02-25 08:48 | Emergency (ER) | payer MEDICARE, OTHER ==
[2024-02-25 09:15] LABS: MEAN CORPUSCULAR HGB CONC 34.8 g/dL (33.0-35.0); MEAN CORPUSCULAR VOLUME 83.2 fL (80-100); RED BLOOD CELL COUNT 2.38 10^6/uL (4.2-5.4)
[2024-02-25 09:23] LABS: WHITE BLOOD CELL COUNT,WBC 0.3 10^3/uL (5.0-10.0)
[2024-02-25 09:24] LABS: HEMATOCRIT 19.8 % (37.0-47.0); HEMOGLOBIN 6.9 g/dL (12.0-16.0)
[2024-02-25 09:25] LABS: LYMPHOCYTES PERCENT AUTO 85.2 % (20.5-50.1); MONOCYTES PERCENT AUTO 11.1 % (2-8); NEUTROPHILS PERCENT AUTO 3.7 % (42.2-75.2); PLATELET COUNT,PLT 15 10^3/uL (150-450)
[2024-02-25 09:32] LABS: ALANINE AMINOTRANSFERASE,ALT 29 U/L (14-59); ALBUMIN 2.5 g/dL (3.4-5.0); ALKALINE PHOSPHATASE 51 U/L (46-116); ANION GAP 14.9 mEq/L (7-13); ASPARTATE AMNIOTRANSFERASE,AST 13 U/L (15-37); BILIRUBIN TOTAL 0.5 mg/dL (0.2-1.0); BLOOD UREA NITROGEN,BUN 21 mg/dL (7-18); BUN/CREATININE RATIO 14.2 (No establ ref range); CALCIUM 8.6 mg/dL (8.5-10.1); CARBON DIOXIDE,CO2 25 mmol/L (21-32); CHLORIDE,CL 98 mmol/L (98-107); CREATININE 1.48 mg/dL (0.55-1.02); GLUCOSE RANDOM 138 mg/dL (70-99); POTASSIUM,K 3.9 mmol/L (3.5-5.1); PROTEIN TOTAL,TP 7.3 g/dL (6.4-8.2); SODIUM,NA 134 mmol/L (136-145)
[2024-02-25 09:35] LABS: A/G RATIO 0.52; B-TYPE NATRIURETIC PEPTIDE,BNP 133 pg/ml (0-100); ESTIMATED GFR 39 mL/min (>=60)
[2024-02-25 10:02] LABS: LYMPHOCYTES PERCENT MAN 91 % (20-50); SEG NEUTROPHILS PERCENT MAN 2 % (42-75)
[2024-02-25 10:03] LABS: MONOCYTES PERCENT MAN 7 % (2-8)
== END 2024-02-25 09:55 | disposition home or self-care (01) ==
LOC: DL.ED 08:48
DX: R07.89 Other chest pain (principal); E78.00 Pure hypercholesterolemia, unspecified; J44.9 Chronic obstructive pulmonary disease, unspecified; Z88.5 Allergy status to narcotic agent; Z88.0 Allergy status to penicillin; Z88.2 Allergy status to sulfonamides; Z79.899 Other long term (current) drug therapy
CPT/HCPCS: 36415; 36430; 71045; 80053; 83880; 84484; 85025; 93005; 93010; 99284; 99285; P9034

== ENCOUNTER 2024-04-18 10:21 | Emergency (ER) | payer MEDICARE ==
[2024-04-18 10:20] LABS: HEMATOCRIT 31.1 % (37.0-47.0); HEMOGLOBIN 10.8 g/dL (12.0-16.0); MEAN CORPUSCULAR HEMOGLOBIN 29.5 pg (27.0-34.0); MEAN CORPUSCULAR HGB CONC 34.7 g/dL (33.0-35.0); RED BLOOD CELL COUNT 3.66 10^6/uL (4.2-5.4); WHITE BLOOD CELL COUNT,WBC 2.1 10^3/uL (5.0-10.0)
[~2024-04-18 10:21] MED LIST: Ondansetron 4 MG in Sodium Chloride 0.9% 50 ML IV ONE; Sodium Chloride 0.9% 10 ML Syringe FLUSH PRN
[2024-04-18] MEDS: Ondansetron 4 MG/2 ML SDV IVPUSH ONE (10:24)
[2024-04-18 10:26] LABS: LYMPHOCYTES PERCENT AUTO 64.5 % (20.5-50.1); MONOCYTES PERCENT AUTO 20.1 % (2-8); NEUTROPHILS PERCENT AUTO 15.4 % (42.2-75.2); PLATELET COUNT,PLT 5 10^3/uL (150-450)
[2024-04-18] MEDS: Ketorolac 30 MG/ML SDV IVPUSH ONE (10:26)
[2024-04-18] MEDS: HYDROmorphone 0.5 MG/0.5 ML Syringe IVPUSH ONE ×2 (10:28→12:54)
[2024-04-18] MEDS: Sodium Chloride 0.9% 500 ML IV ONE (10:30)
[2024-04-18 10:35] LABS: ANION GAP 17.8 mEq/L (7-13); BLOOD UREA NITROGEN,BUN 23 mg/dL (7-18); CALCIUM 8.9 mg/dL (8.5-10.1); CARBON DIOXIDE,CO2 20 mmol/L (21-32); CHLORIDE,CL 97 mmol/L (98-107); CREATININE 1.42 mg/dL (0.55-1.02); GLUCOSE RANDOM 137 mg/dL (70-99); POTASSIUM,K 3.8 mmol/L (3.5-5.1); SODIUM,NA 131 mmol/L (136-145)
[2024-04-18 10:43] LABS: ESTIMATED GFR 40 mL/min (>=60)
[2024-04-18 10:44] LABS: LYMPHOCYTES PERCENT MAN 66 % (20-50); MONOCYTES PERCENT MAN 20 % (2-8); SEG NEUTROPHILS PERCENT MAN 14 % (42-75)
[2024-04-18] MEDS: Baclofen 10 MG Tab PO ONE (10:57)
[2024-04-18] MEDS ORDERED: Naloxone 2 MG/2 ML Syringe IVPUSH PRN (12:32)
== END 2024-04-18 15:39 | disposition designated cancer center or children's hospital (05) ==
LOC: DL.ED 10:21
DX: M54.41 Lumbago with sciatica, right side (principal); J44.9 Chronic obstructive pulmonary disease, unspecified; E66.9 Obesity, unspecified; Z90.49 Acquired absence of other specified parts of digestive tract; Z90.710 Acquired absence of both cervix and uterus; Z79.899 Other long term (current) drug therapy; Z79.2 Long term (current) use of antibiotics; Z88.0 Allergy status to penicillin; Z88.2 Allergy status to sulfonamides; Z88.5 Allergy status to narcotic agent; Z88.8 Allergy status to other drugs, medicaments and biological substances; Z68.26 Body mass index [BMI] 26.0-26.9, adult
CPT/HCPCS: 36415; 72100; 72131; 80048; 83735; 85025; 96361; 96374; 96375; 96376; 99284; A9270; J1170; J1885; J2405; J7030; 36430; J1642; P9034